=== PATIENT | female | born 1950 | race Caucasian/White ===

== ENCOUNTER → 2021-02-05 | Outpatient (CLI) | payer MEDICARE, OTHER ==
[~2021-02-05] MED LIST: CATHETER FLUSH 10 ML SYR IV PRN; HOLD METFORMIN - RECEIVED CONTRAST 20 ML VIAL IV SCH; IOHEXOL 350 MG/ML 100 ML (OMNIPAQUE 350) VIAL IV ONE; NS 100 ML (IVPB) BAG IV ONE
[2021-02-05 08:56] LABS: BUN/CREATININE RATIO 21; CARBON DIOXIDE 25 MMOL/L (21-32); CHLORIDE 106 MMOL/L (98-107); POTASSIUM 3.8 MMOL/L (3.6-5.0); SODIUM 140 MMOL/L (135-145)
[2021-02-05 08:57] LABS: ALANINE AMINOTRANSFERASE 10 U/L (0-55); ALKALINE PHOSPHATASE 127 U/L (40-136); BILIRUBIN,TOTAL 0.4 MG/DL (0.1-1.0); CALCIUM 9.5 MG/DL (8.5-10.1); GFR ESTIMATED > 60; GLUCOSE 97 MG/DL (70-105); TOTAL PROTEIN 7.2 GM/DL (6.4-8.2)
[2021-02-05 08:58] LABS: ALBUMIN 4.1 GM/DL (3.2-4.5)
--- NOTE | 2021-02-05 12:25 | Diagnostic Imaging Report ---
PROCEDURE: CT abdomen with and without contrast. TECHNIQUE: Multiple contiguous axial CT images of the abdomen were obtained prior to and after intravenous administration of iodinated contrast. Auto Exposure Controls were utilized during the CT exam to meet ALARA standards for radiation dose reduction. INDICATION: 70-year-old female, nausea, vomiting, epigastric pain and bloating x3 months. CORRELATION STUDY: None FINDINGS: There are several small 5 mm or less in size pulmonary nodules, particularly in the right middle lobe and lingula left upper lobe. No consolidating infiltrates. Small hiatal hernia. Asymmetric low-density foci along with possible malignant liver may reflect small area of fatty infiltration. Gallbladder absent. No significant bile duct dilatation. Pancreas, spleen and adrenal glands demonstrate no acute findings. Kidneys with normal enhancement. No hydronephrosis or obstruction. Abdominal aorta normal in contour. Major branches are patent at their origins. Stomach is largely contracted. There is suggested asymmetric wall thickening at the pylorus. The partially visualized small bowel as well as colon demonstrates no obstructive feature. Mild stool retention of the visualized segments of the colon. Appendix is visualized and unremarkable. No upper abdominal ascites. There is rather markedly advanced degenerative change about the lumbar spine most severe at L4-L5 to lesser degree L2-L3 level with asymmetric endplate sclerosis. Likely at least mild spinal canal narrowing L3-L4 and L2-L3 levels. 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 Pelvis not imaged. IMPRESSION: 1. Question asymmetric wall thickening of the pylorus of stomach, maybe owing to its collapsed state with possibility of a peptic ulcer disease or other inflammatory/infectious process not excluded. 2. Small hiatal hernia. 3. Several small 5 mm or less in size pulmonary nodules. Consideration for CT imaging of the chest for further assessment of the remaining lung parenchyma. Dictated by: Dictated on workstation # [id number]
== END ==
LOC: RAD FS 08:09
PROVIDERS: ATTEND Nurse Practitioner
DX: K44.9 Diaphragmatic hernia without obstruction or gangrene (principal); R91.8 Other nonspecific abnormal finding of lung field
CPT/HCPCS: 36415; 74170; 80053